=== PATIENT | male | born 1960 | race African-American/Black ===

== ENCOUNTER 2016-04-24 16:30 | Outpatient (RCR) | payer OTHER ==
[~2016-04-24 16:30] MED LIST: HCTZ12.5TAB PO; ZOCOR5 MG PO; ZYLOPRIM 100MG100 MG PO
== END 2016-06-10 | disposition still patient (30) ==
LOC: MKS.ESL.PT
DX: M54.2 Cervicalgia (principal)
CPT/HCPCS: G8990-GP; G8991-GP